=== PATIENT | female | born 1980 | race Two or more races ===

== ENCOUNTER 2017-08-11 15:38 | Emergency (ER) | payer OTHER ==
[~2017-08-11] VITALS: Ht 152.4 cm; Wt 89.0 kg
[2017-08-11] MEDS ORDERED: FAMOTIDINE 20MG TABLET PO STA (17:11)
[2017-08-11 17:59] LABS: BASOPHILS % 0.9 % (0.0-2.0); HEMATOCRIT. 33.8 % (36.0-48.0); HEMOGLOBIN. 10.9 g/dL (12.0-16.0); LYMPHOCYTES % 11.8 % (20.0-50.0); MEAN CORPUSCULAR HEMOGLOBIN 23.5 pg (28.0-32.0); MEAN PLATELET VOLUME 8.8 fl (7.4-10.4); MONOCYTES % 3.7 % (2.0-8.0); NEUTROPHILS % 83.6 % (40.0-76.0); PLATELET 303 x1000/uL (130-400); RED BLOOD CELL COUNT 4.64 mill/uL (4.2-5.4)
[2017-08-11 18:05] LABS: HCG SCREEN NEGATIVE
[2017-08-11 18:07] LABS: INR 1.1; PARTIAL THROMBOPLASTIN TIME 26.9 sec (23.4-31.0); PROTHROMBIN TIME 11.7 sec (9.4-11.6)
[2017-08-11 18:08] LABS: CHLORIDE 104 mEq/L (98-107)
[2017-08-11 18:14] LABS: TROPONIN I < 0.02 ng/mL (0.00-0.04)
[2017-08-11 18:34] LABS: PLATELET ESTIMATE NORMAL
[2017-08-11 19:25] VITALS: BP 150/81
== END 2017-08-11 20:25 | disposition home or self-care (01) ==
LOC: ER 15:38
DX: R07.2 Precordial pain (principal); I10 Essential (primary) hypertension; E78.00 Pure hypercholesterolemia, unspecified; E11.9 Type 2 diabetes mellitus without complications; R79.1 Abnormal coagulation profile
CPT/HCPCS: 36415; 71045; 80053; 83690; 84484; 84703; 85025; 85610; 85730; 99285; Z7610

== ENCOUNTER 2021-06-08 12:42 | Emergency (ER) | payer OTHER ==
[~2021-06-08] VITALS: Ht 152.4 cm; Wt 82.0 kg
[2021-06-08 12:48] VITALS: BP 128/84
[2021-06-08 13:22] LABS: BASOPHILS % 0.8 % (0.0-2.0); EOSINOPHILS % 1.1 % (0.0-5.0); HEMATOCRIT. 43.1 % (36.0-48.0); HEMOGLOBIN. 14.6 g/dL (12.0-16.0); LYMPHOCYTES % 17.7 % (20.0-50.0); MEAN CORPUSCULAR HEMOGLOBIN 30.4 pg (28.0-32.0); MEAN CORPUSCULAR VOLUME 89.6 fL (81.0-99.0); MEAN PLATELET VOLUME 8.7 fl (7.4-10.4); MONOCYTES % 6.4 % (2.0-8.0); PLATELET 247 x1000/uL (130-400); RED BLOOD CELL COUNT 4.81 mill/uL (4.2-5.4); RED CELL DISTRIBUTION WIDTH 14.6 % (11.6-14.6)
[2021-06-08 13:26] LABS: CHLORIDE 101 mEq/L (98-107)
== END 2021-06-08 20:23 | disposition left against medical advice (07) ==
LOC: ER 12:42
DX: R07.89 Other chest pain (principal); Z53.21 Procedure and treatment not carried out due to patient leaving prior to being seen by health care provider
CPT/HCPCS: 36415; 71045; 80053; 83880; 84484; 85025; 93005; 99285